=== PATIENT | female | born 1985 ===

== ENCOUNTER 2023-06-27 18:47 | Emergency (ER) | payer OTHER ==
[~2023-06-27] VITALS: Ht 172.7 cm; Wt 109.1 kg
[2023-06-27 18:50] VITALS: BP 128/72; PULSE 84; RESP 18; TEMP 98.6
[2023-06-27 19:56] LABS: INFLUENZA A-RTPCR,COMBO NEGATIVE (NEGATIVE); INFLUENZA B-RTPCR,COMBO NEGATIVE (NEGATIVE); RESPIRATORY SYNCYTIAL VRS-PCR NEGATIVE (NEGATIVE); SARS COVID19 RTPCR, COMBO NEGATIVE (NEGATIVE)
[2023-06-27] MEDS ORDERED: BENZ-227 PO (21:18)
== END 2023-06-27 21:30 | disposition home or self-care (01) ==
LOC: EMS 18:47
DX: J06.9 Acute upper respiratory infection, unspecified (principal); R05.9 Cough, unspecified; Z20.822 Contact with and (suspected) exposure to COVID-19
CPT/HCPCS: 99284; 0241U; 71045; 87430